=== PATIENT | female | born 1970 | race Two or more races ===

== ENCOUNTER 2018-07-14 16:41 | Emergency (ER) | payer OTHER ==
[~2018-07-14] VITALS: Ht 157.5 cm; Wt 95.3 kg
[2018-07-14] MEDS ORDERED: PREVACID15 MG (17:02)
== END 2018-07-14 18:02 | disposition home or self-care (01) ==
LOC: ER 16:41
DX: L08.9 Local infection of the skin and subcutaneous tissue, unspecified (principal)

== ENCOUNTER 2021-05-22 15:59 | Emergency (ER) | payer OTHER ==
[~2021-05-22] VITALS: Ht 157.5 cm; Wt 117.9 kg
[~2021-05-22 15:59] MED LIST: PREVACID15 MG
[2021-05-22] MEDS ORDERED: CARDIZEM30 MG (16:14)
== END 2021-05-22 21:05 | disposition home or self-care (01) ==
LOC: ER 15:59
DX: N93.9 Abnormal uterine and vaginal bleeding, unspecified (principal); I10 Essential (primary) hypertension